=== PATIENT | female | born 1995 | race Caucasian/White ===

== ENCOUNTER 2020-11-01 11:30 | Emergency (ER) | payer OTHER ==
[~2020-11-01] VITALS: Ht 165.1 cm; Wt 92.5 kg
[2020-11-01 11:39] VITALS: Ht 165.1 cm; Wt 92.5 kg
[2020-11-01 12:36] LABS: microscopic required? YES; urine erythrocyte TRACE (NEGATIVE)
[2020-11-01 12:45] LABS: CALCIUM 9.2 mg/dL (8.5-10.1); CARBON DIOXIDE 26.3 mmol/L (21-32); CHLORIDE SERUM 102 mmol/L (98-107); CREATININE SERUM 0.9 mg/dL (0.6-1.0); GFR1 > 60 mL/min; GLUCOSE SERUM 92 mg/dL (74-106); SODIUM SERUM 135 mmol/L (136-145)
[2020-11-01 12:50] LABS: PLATELET COUNT 374 x10^3mcL (179-408); RED CELL DISTRIBUTION WIDTH 14.3 % (12.3-17.7)
[2020-11-01 12:51] LABS: ALBUMIN 3.8 g/dL (3.4-5.0); ALKALINE PHOSPHATASE 93 U/L (46-116); ALT/SGPT 32 U/L (14-59); AST/SGOT 20 U/L (15-37); BILIRUBIN TOTAL 0.32 mg/dL (0.20-1.00); LIPASE 230 IU/L (73-393); TOTAL PROTEIN, SERUM 7.6 g/dL (6.4-8.2)
[2020-11-01 13:35] LABS: MONOCYTE 8 % (0-7); PLATELET MORPHOLOGY PLATELETS NORMAL; SEGMENTED NEUTROPHILS 63 % (37-75); rbc morphology (normal/abnorm) NORMAL (NORMAL)
[2020-11-01 14:01] VITALS: BP 118/68
== END 2020-11-01 14:01 | disposition home or self-care (01) ==
LOC: ED 11:30
PROVIDERS: Emergency Medicine
DX: D17.71 Benign lipomatous neoplasm of kidney (principal); D73.89 Other diseases of spleen
CPT/HCPCS: Q0162